=== PATIENT | female | born 1975 | race Caucasian/White ===

== ENCOUNTER 2021-01-14 19:07 | Emergency (ER) | payer SELFPAY ==
[2021-01-14] MEDS ORDERED: MEDROL DOSEPAK 24 MG PO (19:42)
== END 2021-01-14 20:10 | disposition home or self-care (01) ==
LOC: ER1 19:07
DX: M25.531 Pain in right wrist (principal); M79.89 Other specified soft tissue disorders; Z90.89 Acquired absence of other organs
CPT/HCPCS: 73110; 96372; 99283; J1100; J1885